=== PATIENT | female | born 1990 | race Caucasian/White ===

== ENCOUNTER 2022-02-14 12:43 | Emergency (ER) | payer SELFPAY ==
[2022-02-14] MEDS ORDERED: ONDANSETRON 4 MG/2 ML VIAL ONE (16:25)
[2022-02-14] MEDS ORDERED: DIAZEPAM 10 MG/2 ML INJ SYRINGE ONE ×2 (16:25→19:59)
--- NOTE | 2022-02-14 16:29 | RAD REPORT ---
EXAM DESCRIPTION: CT - Head Brain Wo Cont - 02/14/2022 4:17 pm CLINICAL HISTORY: Alteration of consciousness COMPARISON: None. TECHNIQUE: Computed axial tomography of the head was obtained. IV contrast was not requested. All CT scans are performed using dose optimization technique as appropriate and may include automated exposure control or mA/KV adjustment according to patient size. FINDINGS: An intracranial bleed is not seen . The ventricles are normal in caliber. No significant hypodense areas within the brain No extra-axial fluid collection is noted. Fluid within the sinuses/ mastoids is not seen. IMPRESSION: No acute intracranial abnormality is seen. If patient's symptoms persist MRI of the bra in would be recommended.
[2022-02-14 16:31] LABS: Urine Blood 2+ (Negative); Urine Glucose Negative (Negative); Urine Protein 2+ (Negative); Urine Specific Gravity >=1.030 (1.005-1.030)
[2022-02-14 16:42] LABS: Barbiturates NEGATIVE (NEGATIVE); Benzodiazepines POSITIVE (NEGATIVE); Cocaine NEGATIVE (NEGATIVE); METHAMPHETAM NEGATIVE (NEGATIVE); Methadone NEGATIVE (NEGATIVE); Opiates NEGATIVE (NEGATIVE); Phencyclidine NEGATIVE (NEGATIVE); THC Cannibis NEGATIVE (NEGATIVE)
[2022-02-14 16:46] LABS: Absolute Lymphocytes (CBC) 2.5 K/uL (0.7-4.9); Hematocrit 40.6 % (36.0-45.0); Lymphocytes % 35.2 % (15.3-44.8); MPV 7.6 fL (7.6-11.3); RBC Red Blood Cell Count 4.84 M/uL (3.86-4.86)
[2022-02-14] MEDS ORDERED: NA CHLORIDE 0.9% 1,000 ML ONE ×2 (16:47→18:20)
[2022-02-14 16:52] LABS: Protime INR 0.87
[2022-02-14 17:02] LABS: ALT/SGPT 79 U/L (12-78); AST/SGOT 120 U/L (15-37); Albumin 3.9 g/dL (3.4-5.0); Alkaline Phosphatase 49 U/L (45-117); BUN Blood Urea Nitrogen 11 mg/dL (7-18); Bicarbonate 22 mmol/L (21-32); Bilirubin Total 0.3 mg/dL (0.2-1.0); Glucose Level 76 mg/dL (74-106); Potassium 3.6 mmol/L (3.5-5.1); Protein, Total 7.8 g/dL (6.4-8.2); Sodium Level 141 mmol/L (136-145)
[2022-02-14 17:04] LABS: Bilirubin Direct < 0.1 mg/dL (0-0.2)
[2022-02-14] MEDS ORDERED: METOCLOPRAMIDE 10 MG/2mL INJ ONE (18:19)
[2022-02-14] MEDS ORDERED: MULTIVITAMINS 10 ML VIAL (INJ) IV ONE (18:20)
[2022-02-14] MEDS ORDERED: THIAMINE 200 MG/2 ML INJ ONE (18:20)
--- NOTE | 2022-02-14 20:48 | ER ---
Nurse's Notes [facility] Name: Dania Haas Age: 31 yrs Sex: Female : 1990 Arrival Date: 02/14/2022 Time: 13:05 Bed Treatment Private MD: Diagnosis: Alcohol abuse Presentation: 02/14 16:06 Chief complaint: Spouse and/or significant other states: She is detoxing and had been [facility] sober for 30 days and relapsed over the weekend. When I had found her, she was incoherent and I could barely. She had a seizure up front while waiting to be seen. Last drink was approximately 40 hours ago. Coronavirus screen: At this time, the client does not indicate any symptoms associated with coronavirus-19. Ebola Screen: No symptoms or risks identified at this time. Initial Sepsis Screen: Does the patient meet any 2 criteria? HR > 90 bpm. Yes Does the patient have a suspected source of infection? No. Patient's initial sepsis screen is negative. Risk Assessment: Do you want to hurt yourself or someone else? Patient reports no desire to harm self or others. Onset of symptoms was February 14, 2022. Transition of care: patient was not received from another setting of care. 16:06 Method Of Arrival: EMS: [facility] 16:06 Acuity: HARINI 2 [facility] 16:06 Care prior to arrival: 4mg zofran IV and 500ml NS from EMS. jb4 Historical: - Allergies: 16:17 Yana; jb4 - Home Meds: 16:17 citalopram oral [Active]; Naltexone [Active]; Prazosin Oral [Active]; jb4 - PMHx: 16:17 Alcoholism; jb4 - PSHx: 16:17 Back x9; jb4 - Immunization history:: Adult Immunizations up to date. - Social history:: Smoking status: Patient denies any tobacco usage or history of. Screenin:00 Abuse screen: Denies threats or abuse. Denies injuries from another. [facility] 17:00 Nutritional screening: No deficits noted. Tuberculosis screening: No symptoms or risk [facility] factors identified. Fall Risk IV access (20 points). Assessment: 17:00 General: Appears in no apparent distress. Behavior is calm, cooperative, pt moved into [facility] fast track treatment room at this time. . 17:00 Pain: Pain currently is 3 out of 10 on a pain scale. Quality of pain is described as [facility] aching. 18:00 Reassessment: No changes from previously documented assessment. Patient and/or family [facility] updated on plan of care and expected duration. Pain level reassessed. Patient is alert, oriented x 3, equal unlabored respirations, skin warm/dry/pink. pt resting in chair, call light in reach Patient denies pain at this time. Patient states feeling better. Patient states symptoms have improved. 20:26 Reassessment: Patient appears in no apparent distress at this time. Patient and/or jb4 family updated on plan of care and expected duration. Pain level reassessed. Patient is alert, oriented x 3, equal unlabored respirations, skin warm/dry/pink. Patient states feeling better. Patient states symptoms have improved. 21:03 Reassessment: Patient appears in no apparent distress at this time. Patient and/or jb4 family updated on plan of care and expected duration. Pain level reassessed. Patient is alert, oriented x 3, equal unlabored respirations, skin warm/dry/pink. 21:23 Reassessment: Pt is alert and oriented x4, ambulates with steady gait. respirations are jb4 even and unlabored with no s/s of pain or distress noted. Pt verbalized understanding of d/c and follow up instructions. . Pt ambulated out of ED to lobby to wait for ride home. Vital Signs: 16:06 BP 110 / 81; Pulse 98; Resp 16; Temp 97.8(TE); Pulse Ox 100% ; Weight 49.44 kg (R); jb4 Height 5 ft. 4 in. (162.56 cm) (R); Pain 3/10; 18:00 BP 108 / 76; Pulse 85; Resp 17; Pulse Ox 100% ; Pain 0/10; jh6 20:26 BP 124 / 77; Pulse 92; Resp 16; Pulse Ox 100% on R/A; jb4 16:06 Body Mass Index 18.71 (49.44 kg, 162.56 cm) [facility] ED Course: 13:05 Patient arrived in ED. em1 13:25 Lloyd Silva PA is PHCP. jmm 13:25 Ibrahima Downey MD is Attending Physician. [facility] 16:09 Attending Physician role handed off by Ibrahima Downey MD [facility] 16:09 Alexandre Dillard MD is Attending Physician. [facility] 16:12 Triage completed. jb4 16:17 Arm band placed on right wrist. jb4 16:19 CT Head Brain wo Cont In Process Unspecified. EDMS 16:34 Bed in low position. Call light in reach. Side rails up X 1. Door closed. Noise mb7 minimized. Warm blanket given. 16:35 Initial lab(s) drawn, by ri, sent to lab. Inserted saline lock: 18 gauge in left jb4 antecubital area, using aseptic technique. Blood collected. 16:42 Debbie Azevedo, JEFFERSON is Primary Nurse. 6 21:23 No provider procedures requiring assistance completed. IV discontinued, intact, jb4 bleeding controlled, No redness/swelling at site. Pressure dressing applied. Administered Medications: 16:30 Drug: Zofran (Ondansetron) 4 mg Route: IVP; Site: left antecubital; jb4 18:33 Follow up: Response: No adverse reaction jh6 16:32 Drug: Valium (diazepam) 5 mg Route: IVP; Site: left antecubital; jb4 18:32 Follow up: Response: No adverse reaction 6 16:48 Drug: NS 0.9% 1000 ml Route: IV; Rate: 1 bolus; Site: left antecubital; jh6 18:15 Drug: Banana Bag - (NS 0.9% 1000 ml, foLIC Acid 1 mg, Thiamine 100 mg, Multivitamin 1 jh6 amp) Route: IV; Rate: calculated rate; Site: left forearm; 18:15 Drug: Reglan (metoCLOPramide) 20 mg Route: IVP; Site: left forearm; jh6 21:26 Follow up: Response: No adverse reaction; Marked relief of symptoms jb4 18:32 Not Given (Duplicate Order): Thiamine 100 mg IV at bolus once 6 19:59 Drug: Valium (diazepam) 5 mg Route: IVP; Site: left antecubital; jb4 21:25 Follow up: Response: No adverse reaction; Marked relief of symptoms jb4 Outcome: 20:47 Discharge ordered by . [facility] 21:23 Discharged to [facility] to wait for ride home. jb4 21:23 Condition: stable 21:23 Discharge instructions given to patient, Instructed on discharge instructions, follow up and referral plans. medication usage, Demonstrated understanding of instructions, follow-up care, medications, Prescriptions given X 2. 21:25 Patient left the ED. jb4 Signatures: Dispatcher [employer] EDAlexandre Hopkins MD MD cha Mickail, Joel, PA PA jmm Martinez, Eric em1 Vinicius Womack RN RN jb4 Debbie Azevedo RN RN jh6 Nette Oneal 7
--- NOTE | 2022-02-14 20:49 | EDPHYS ---
Physician Documentation [facility] Name: Dania Haas Age: 31 yrs Sex: Female : 1990 Arrival Date: 02/14/2022 Time: 13:05 Bed Treatment Private MD: NIDIA Physician Alexandre Dillard HPI: 02/14 14:08 This 31 yrs old Female presents to ER via EMS with complaints of Nausea/Vomiting. [facility] 14:08 The patient presents to the emergency department with nausea, vomiting. Onset: The [facility] symptoms/episode began/occurred today. Possible causes: Alcohol. The symptoms are aggravated by nothing. The symptoms are alleviated by nothing. Is a 31-year-old female with history of alcoholism that presents emerged part with complaints of vomiting and nausea. Family states the patient relapsed after 30 days of sobriety. Believe the patient may have had a seizure.. Historical: - Allergies: 16:17 Yana; jb4 - Home Meds: 16:17 citalopram oral [Active]; Naltexone [Active]; Prazosin Oral [Active]; jb4 - PMHx: 16:17 Alcoholism; jb4 - PSHx: 16:17 Back x9; jb4 - Immunization history:: Adult Immunizations up to date. - Social history:: Smoking status: Patient denies any tobacco usage or history of. ROS: 20:33 Constitutional: Negative for fever, chills, and weight loss, Cardiovascular: Negative jmm for chest pain, palpitations, and edema, Respiratory: Negative for shortness of breath, cough, wheezing, and pleuritic chest pain. 20:33 Abdomen/GI: Positive for vomiting. 20:33 All other systems are negative. Exam: 20:33 Constitutional: This is a well developed, well nourished patient who is awake, alert, jmm and in no acute distress. Head/Face: atraumatic. Eyes: EOMI, no conjunctival erythema appreciated ENT: Moist Mucus Membranes Neck: Trachea midline, Supple Chest/axilla: Normal chest wall appearance and motion. Cardiovascular: Regular rate and rhythm. No edema appreciated Respiratory: Normal respirations, no respiratory distress appreciated Abdomen/GI: Non distended, soft Back: Normal ROM Skin: General appearance color normal MS/ Extremity: Moves all extremities, no obvious deformities appreciated, no edema noted to the lower extremities Neuro: Awake and alert Psych: Behavior is normal, Mood is normal, Patient is cooperative and pleasant Vital Signs: 16:06 BP 110 / 81; Pulse 98; Resp 16; Temp 97.8(TE); Pulse Ox 100% ; Weight 49.44 kg (R); jb4 Height 5 ft. 4 in. (162.56 cm) (R); Pain 3/10; 18:00 BP 108 / 76; Pulse 85; Resp 17; Pulse Ox 100% ; Pain 0/10; jh6 20:26 BP 124 / 77; Pulse 92; Resp 16; Pulse Ox 100% on R/A; jb4 16:06 Body Mass Index 18.71 (49.44 kg, 162.56 cm) jb4 MDM: 14:08 Patient medically screened. [facility] 20:46 Data reviewed: vital signs, nurses notes. Counseling: I had a detailed discussion with [facility] the patient and/or guardian regarding: the historical points, exam findings, and any diagnostic results supporting the discharge/admit diagnosis, lab results, radiology results, the need for outpatient follow up, to return to the emergency department if symptoms worsen or persist or if there are any questions or concerns that arise at home. ED course: Patient is alert and non toxic in appearance in the ED. Patient discharged with family. Advised to follow up with pcp and otherwise given strict return precautions. patient understood and agrees with the plan of care. . 21:16 ED course: Patient is a x o 4, ambulating without difficulty tolerating PO. . [facility] 21:25 ED course: Patient is currently alert and orient x4. Ambulatory. Tolerating p.o. Vital [facility] signs are normal. Patient does have high level of EtOH in her system. Patient discharged to the care of her boyfriend. Given strict return precautions. Patient understood agrees plan of care.. 02/14 14:08 Order name: Acetaminophen; Complete Time: 17:05 [facility] 02/14 14:08 Order name: Basic Metabolic Panel; Complete Time: 17:05 [facility] 02/14 14:08 Order name: CBC with Diff; Complete Time: 16:49 [facility] 02/14 14:08 Order name: ETOH Level; Complete Time: 17:05 [facility] 02/14 14:08 Order name: Hepatic Function; Complete Time: 17:05 [facility] 02/14 14:08 Order name: PT-INR; Complete Time: 16:53 [facility] 02/14 14:08 Order name: Ptt, Activated; Complete Time: 16:53 [facility] 02/14 14:08 Order name: Salicylate; Complete Time: 17:22 [facility] 02/14 14:08 Order name: Urine Drug Screen; Complete Time: 16:46 [facility] 02/14 16:09 Order name: CT Head Brain wo Cont; Complete Time: 16:30 [facility] 02/14 16:31 Order name: Urine Dipstick-Ancillary; Complete Time: 16:32 [facility] 02/14 14:08 Order name: EKG - Nurse/Tech; Complete Time: 19:04 [facility] 02/14 14:08 Order name: IV Saline Lock; Complete Time: 16:33 [facility] 02/14 14:08 Order name: Labs collected and sent; Complete Time: 16:33 [facility] 02/14 14:08 Order name: Suicide Screening ([place]); Complete Time: 16:18 [facility] 02/14 14:08 Order name: Urine Dipstick-Ancillary (obtain specimen); Complete Time: 16:33 [facility] 02/14 15:51 Order name: Urine Test (obtain specimen); Complete Time: 16:33 [facility] Administered Medications: 16:30 Drug: Zofran (Ondansetron) 4 mg Route: IVP; Site: left antecubital; jb4 18:33 Follow up: Response: No adverse reaction 6 16:32 Drug: Valium (diazepam) 5 mg Route: IVP; Site: left antecubital; jb4 18:32 Follow up: Response: No adverse reaction 6 16:48 Drug: NS 0.9% 1000 ml Route: IV; Rate: 1 bolus; Site: left antecubital; jh6 18:15 Drug: Banana Bag - (NS 0.9% 1000 ml, foLIC Acid 1 mg, Thiamine 100 mg, Multivitamin 1 jh6 amp) Route: IV; Rate: calculated rate; Site: left forearm; 18:15 Drug: Reglan (metoCLOPramide) 20 mg Route: IVP; Site: left forearm; jh6 21:26 Follow up: Response: No adverse reaction; Marked relief of symptoms 4 18:32 Not Given (Duplicate Order): Thiamine 100 mg IV at bolus once jh6 19:59 Drug: Valium (diazepam) 5 mg Route: IVP; Site: left antecubital; jb4 21:25 Follow up: Response: No adverse reaction; Marked relief of symptoms jb4 Disposition: 23:38 Co-signature as Attending Physician, Ibrahima Downey MD. rn Disposition Summary: 02/14/22 20:47 Discharge Ordered Location: Home [facility] Condition: Stable [facility] Diagnosis - Alcohol abuse [facility] Followup: [facility] - With: Private Physician - When: 2 - 3 days - Reason: Recheck today's complaints, Continuance of care, Re-evaluation by your physician Discharge Instructions: - Discharge Summary Sheet [facility] - Alcohol Abuse and Dependence Information, Teen [facility] Forms: - Medication Reconciliation Form [facility] - Thank You Letter [facility] - Antibiotic Education [facility] - Prescription Opioid Use [facility] Prescriptions: - chlordiazepoxide HCl 25 mg Oral capsule - take 1 capsule by ORAL route as directed Next please take 1 tab by mouth every jmm 6 hours for 4 days, then take 1 tab by mouth every 8 hours for 3 days, then take 1 tab by mouth every 12 hours for 2 days, then take 1 tab by mouth at bedtime for 2 days; 30 capsule; Refills: 0, Product Selection Permitted - ondansetron 4 mg Oral tablet,disintegrating - take 1 tablet by ORAL route every 4-6 hours; 30 tablet; Refills: 0, Product [facility] Selection Permitted Signatures: Dispatcher [employer] Alexandre Mejia MD MD cha Mickail, Joel, PA PA jmm Nieto, Roman, MD MD rn Bryson, James, RN RN jb4 Debbie Azevedo RN RN jh6 Corrections: (The following items were deleted from the chart) 20:11 14:08 Is a 31-year-old female with history of alcohol. [facility]
[2022-02-14 23:23] VITALS: TEMP 97.8; O2SAT 100
[2022-02-14 23:27] VITALS: BP 124/77
== END 2022-02-14 21:25 | disposition home or self-care (01) ==
LOC: ER 12:43
DX: F10.20 Alcohol dependence, uncomplicated (principal); Z91.048 Other nonmedicinal substance allergy status
CPT/HCPCS: 36415; 70450; 80048; 80076; 80307; 80320; 80329; 81003; 85025; 85610; 85730; 99284; J2405; J2765; J3360; J3411; J7030